=== PATIENT | male | born 1960 | race Caucasian/White ===

== ENCOUNTER 2019-05-12 11:15 | Emergency (ER) | payer BC ==
[~2019-05-12] VITALS: Ht 172.7 cm; Wt 102.3 kg
[2019-05-12] MEDS ORDERED: PRED20TA (11:25)
[2019-05-12] MEDS ORDERED: SILD100T (11:25)
[2019-05-12] MEDS ORDERED: AZEL0.055 (11:44)
[2019-05-12] MEDS ORDERED: COMBIVENT RESPIMAT 100-20MCG INHALER 4GM INH SCH (12:15)
[2019-05-12] MEDS ORDERED: methylPREDNISolone INJ 125 MG/2 ML VIAL (J2930) IV ONE (12:15)
[2019-05-12 12:30] LABS: BASO % 0.8 % (0.0-1.0); EOS # 0.1 10^3/uL (0.0-0.5); EOS % 1.3 % (0.0-3.0); HEMATOCRIT 41.2 % (42.0-52.0); HEMOGLOBIN 14.3 g/dl (13.5-17.5); LYMPH # 1.3 10^3/uL (1.5-5.0); MEAN CORPUSCULAR HEMOGLOBIN 30.5 pg (27.0-33.0); MEAN CORPUSCULAR HGB CONC 34.7 g/dl (32.0-36.5); MEAN CORPUSCULAR VOLUME 87.8 fl (80.0-96.0); MONO # 0.3 10^3/uL (0.0-0.8); MONO % 6.5 % (0.0-5.0); NEUTROPHILS # 3.5 10^3/uL (1.5-8.5); NEUTROPHILS % 65.8 % (36.0-66.0); PLATELET COUNT, AUTOMATED 154 10^3/uL (150-450); RED BLOOD COUNT 4.69 10^6/uL (4.30-6.10); WHITE BLOOD COUNT 5.2 10^3/uL (4.0-10.0)
[2019-05-12 13:03] LABS: ALBUMIN 3.7 GM/DL (3.2-5.2); ALT/SGPT 33 U/L (12-78); BILIRUBIN,DIRECT 0.1 MG/DL (0.0-0.2); BILIRUBIN,TOTAL 0.6 MG/DL (0.2-1.0); CK-MB VALUE MASS < 1.0 NG/ML (<3.6); CPK CREATINE PHOSPHOKINASE 50 U/L (39-308); FREE T4 1.07 NG/DL (0.76-1.46); LIPASE 75 U/L (73-393); THYROID STIMULATING HORMONE 0.996 uIU/ML (0.358-3.740); THYROXINE (T4) 9.4 UG/DL (4.5-12.0); TOTAL PROTEIN 6.7 GM/DL (6.4-8.2); TROPONIN I < 0.02 NG/ML (< 0.10)
[2019-05-12] MEDS ORDERED: ISOVUE-370 76% 100ML VIAL (Q9967) As Ordered ONE (13:08)
[2019-05-12] MEDS ORDERED: MECLIZINE 25 MG TABLET PO ONE (13:30)
[2019-05-12] MEDS ORDERED: NS 1,000 ML IV ONE (13:30)
[2019-05-12 13:46] VITALS: BP 148/72
[2019-05-12] MEDS ORDERED: MECL1TAB31 PO (14:09)
--- NOTE | 2019-05-13 07:20 | REP ---
REASON: Chest pain. PRIORS: None. CONTRAST: 100 mL Isovue 370. There is excellent visualization of the pulmonary arterial vasculature. There are no focal filling defects present that would be considered consistent with pulmonary emboli. The thoracic aorta is within normal limits. There is no mediastinal or hilar adenopathy. There are no pleural or pericardial effusions. The imaged upper abdomen and imaged osseous structures are within normal limits. Evaluation of the lung kamara show them to be less than optimally expanded with evidence of minimal dependent subsegmental atelectatic change. No abnormal nodules, masses or other opacities are identified. IMPRESSION: CT findings are within normal limits. Electronically Signed by Juan Saldaña DO 05/13/2019 01:28 P
--- NOTE | 2019-05-13 07:22 | REP ---
REASON: Dizziness. COMPARISON: 12/30/2009, which was normal. CT BRAIN WITHOUT CONTRAST: TECHNIQUE: 4.5 mm contiguous transaxial sections were obtained from the skull base to the cerebral convexities with thin cuts through the posterior fossa without the administration of intravenous contrast. FINDINGS: The ventricles and sulci are consistent with the patient's age. There are no extra-axial fluid collections. There is no mass effect. The deep cerebral white matter is consistent with the patient's age. The orbital and petrous structures , cerebellopontine angles, and posterior fossa are unremarkable. The sella turcica, cavernous, and paracavernous structures are essentially unremarkable. The visualized portions of the paranasal sinuses and mastoid air cells are clear. Images of the skull base show no gross abnormality. IMPRESSION: Essentially unremarkable CT examination of the brain. There has been no significant change from the prior exam. Electronically Signed by Juan Saldaña DO 05/13/2019 01:28 P
--- NOTE | 2019-05-13 07:23 | ECGEPIP ---
[facility] - ED Test Date: 2019-05-12 Pat Name: JACLYN CANNON Department: Room: - Gender: Male Operations Intern: ct : 1960 Requested By: Will Benson Order Number: [id number] Reading MD: Sasha Hurtado Measurements Intervals [place] Rate: 71 P: 34 MI: 195 QRS: 17 QRSD: 108 T: 12 QT: 388 QTc: 424 Interpretive Statements SINUS RHYTHM LOW QRS VOLTAGE IN PRECORDIAL LEADS RIGHT VENTRICULAR CONDUCTION DELAY NO PRIOR Electronically Signed on 05-13-2019 7:23:14 EDT by Sasha Hurtado
== END 2019-05-12 14:31 | disposition home or self-care (01) ==
LOC: M ED 11:15
DX: J40 Bronchitis, not specified as acute or chronic (principal); R42 Dizziness and giddiness
CPT/HCPCS: 70450; 71275; 80047; 80076; 82550; 82553; 83605; 83690; 84439; 84443; 84484; 85025; 86140; 87040; 87486; 87581; 87633; 87798; 93005; 93041; 94640; 94760; 96361; 96374; 99285; J2930; Q9967

== ENCOUNTER 2021-04-19 11:02 | Emergency (ER) | payer BC ==
[~2021-04-19] VITALS: Ht 170.2 cm; Wt 105.9 kg
[~2021-04-19 11:02] MED LIST: AZEL0.055; MECL1TAB31 PO; PRED20TA; SILD100T
[2021-04-19 11:03] VITALS: BP 140/83
[2021-04-19] MEDS ORDERED: MEDR4PAK PO (15:35)
[2021-04-19] MEDS ORDERED: METH-1164 PO (15:37)
== END 2021-04-19 15:42 | disposition home or self-care (01) ==
LOC: M ED 11:02
DX: M54.12 Radiculopathy, cervical region (principal); G89.29 Other chronic pain; N52.9 Male erectile dysfunction, unspecified

== ENCOUNTER → 2021-12-14 | Outpatient (REF) | payer BC ==
[~2021-12-14] MED LIST changes: +MEDR4PAK PO; +METH-1164 PO
== END ==
LOC: M LAB REF 10:12
PROVIDERS: ATTEND Surgery
DX: L90.5 Scar conditions and fibrosis of skin (principal)

== ENCOUNTER → 2023-09-30 | Outpatient (CLI) | payer OTHER ==
[~2023-09-30] MED LIST changes: -AZEL0.055; +AZEL1SPR4; +MECL-209 PO; -MECL1TAB31 PO
[2023-09-30 15:03] LABS: BASO # 0.1 10^3/uL (0.0-0.2); BASO % 0.6 % (0.0-1.0); EOS # 0.2 10^3/uL (0.0-0.5); EOS % 1.8 % (0.0-3.0); HEMATOCRIT 47.4 % (42.0-52.0); HEMOGLOBIN 16.8 g/dl (13.5-17.5); LYMPH # 1.5 10^3/uL (1.5-5.0); LYMPH % 12.9 % (24.0-44.0); MEAN CORPUSCULAR HEMOGLOBIN 31.3 pg (27.0-33.0); MEAN CORPUSCULAR HGB CONC 35.4 g/dl (32.0-36.5); MEAN CORPUSCULAR VOLUME 88.4 fl (80.0-96.0); MONO # 0.9 10^3/uL (0.0-0.8); MONO % 8.1 % (2.0-8.0); NEUTROPHILS # 8.7 10^3/uL (1.5-8.5); NEUTROPHILS % 75.9 % (36.0-66.0); PLATELET COUNT, AUTOMATED 166 10^3/uL (150-450); RED BLOOD COUNT 5.36 10^6/uL (4.30-6.10)
[2023-09-30 15:19] LABS: ALBUMIN 3.9 G/DL (3.2-5.2); ALKALINE PHOSPHATASE 94 U/L (46-116); ALT/SGPT 61 U/L (7.0-40); AST/SGOT 27 U/L (<34); BILIRUBIN,TOTAL 0.7 MG/DL (0.3-1.2); BLOOD UREA NITROGEN 15 MG/DL (9-23); CARBON DIOXIDE LEVEL 26 MMOL/L (20-31); CHLORIDE LEVEL 104 MMOL/L (98-107); GLOMERULAR FILTRATION RATE > 60.0 (>49); GLUCOSE, FASTING 155 MG/DL (74-106); POTASSIUM SERUM 4.1 MMOL/L (3.5-5.1); SODIUM LEVEL 137 MMOL/L (136-145); TOTAL PROTEIN 6.8 G/DL (5.7-8.2)
[2023-09-30 15:21] LABS: FREE T4 1.15 NG/DL (0.89-1.76); THYROID STIMULATING HORMONE 1.296 uIU/ML (0.55-4.78)
[2023-10-02 08:51] LABS: WHITE BLOOD COUNT 11.5 10^3/uL (4.0-10.0)
== END ==
LOC: M RAD 14:16
PROVIDERS: ATTEND Physician Assistant
DX: R05.9 Cough, unspecified (principal); R53.83 Other fatigue